=== PATIENT | female | born 1990 | race Hispanic/Latino ===

== ENCOUNTER 2017-06-12 08:13 | Outpatient (CLI) | payer OTHER | END 2017-06-12 08:14 | disposition home or self-care (01) | LOC: BICULT 08:13 | PROVIDERS: ATTEND Physician Assistant | DX: R19.00 Intra-abdominal and pelvic swelling, mass and lump, unspecified site (principal) | CPT/HCPCS: 76705 ==

== ENCOUNTER 2018-09-08 19:28 | Emergency (ER) | payer OTHER | END 2018-09-09 10:45 | disposition home or self-care (01) | LOC: ERS 19:28 | DX: K04.7 Periapical abscess without sinus (principal) | CPT/HCPCS: 64400 ==